=== PATIENT | female | born 1970 | race Caucasian/White ===

== ENCOUNTER → 2017-01-24 | Outpatient (REF) | payer BC ==
[2017-01-24 10:05] LABS: BASOPHILS % (AUTO) 1 % (0-2); EOSINOPHILS # (AUTO) 0.2 10^3uL; EOSINOPHILS % (AUTO) 3 % (0-4); LYMPHOCYTES # (AUTO) 1.7 X10^3; MEAN CORPUSCULAR HEMOGLOBIN 27.1 PG (26.0-34.0); MEAN CORPUSCULAR HGB CONC 33.3 g/dL (31.0-37.0); MEAN CORPUSCULAR VOLUME 81 FL (80-100); MEAN PLATELET VOLUME 10.7 FL (6.0-9.5); MONOCYTES # (AUTO) 0.6 X10^3; MONOCYTES % (AUTO) 10 % (3-11); NEUTROPHILS # (AUTO) 3.7 X10^3; NEUTROPHILS % (AUTO) 58 % (51-67); PLATELET COUNT 266 10^3uL (150-450); WHITE BLOOD COUNT 6.24 10^3uL (4.0-11.0)
[2017-01-24 10:06] LABS: BILIRUBIN,URINE Negative (Negative); CLARITY,URINE Clear; COLOR,URINE Yellow; GLUCOSE, URINE (UA) Negative (Negative); LEUKOCYTE ESTERASE, URINE Negative (Negative); UROBILINOGEN,URINE 0.2 mg/dL (0.2-1.0)
[2017-01-24 10:48] LABS: ALBUMIN 4.4 g/dL (3.4-5.0); ANION GAP 14.2 MEQ/L (3-15); CALCULATED IONIZED CALCIUM 3.9 mg/dL (3.8-4.6); TOTAL PROTEIN 7.7 g/dL (6.4-8.5)
== END ==
LOC: LAB 09:17
PROVIDERS: ATTEND Nurse Practitioner Family
DX: I10 Essential (primary) hypertension (principal); E78.2 Mixed hyperlipidemia; R53.83 Other fatigue; R35.0 Frequency of micturition
CPT/HCPCS: 80053; 80061; 81003; 84443; 85025

== ENCOUNTER 2017-02-22 11:44 | Emergency (ER) | payer BC ==
[~2017-02-22] VITALS: Ht 154.9 cm; Wt 67.0 kg
[2017-02-22] MEDS ORDERED: MECLIZINE 25 MG (ANTIVERT) TABLET PO STA (13:10)
[2017-02-22 13:54] LABS: BASOPHILS % (AUTO) 1 % (0-2); EOSINOPHILS # (AUTO) 0.3 10^3uL; EOSINOPHILS % (AUTO) 2 % (0-4); LYMPHOCYTES # (AUTO) 1.4 X10^3; MEAN CORPUSCULAR HEMOGLOBIN 26.8 PG (26.0-34.0); MEAN CORPUSCULAR HGB CONC 32.8 g/dL (31.0-37.0); MEAN CORPUSCULAR VOLUME 82 FL (80-100); MEAN PLATELET VOLUME 10.4 FL (6.0-9.5); MONOCYTES # (AUTO) 0.7 X10^3; MONOCYTES % (AUTO) 6 % (3-11); NEUTROPHILS # (AUTO) 8.1 X10^3; NEUTROPHILS % (AUTO) 77 % (51-67); PLATELET COUNT 290 10^3uL (150-450)
[2017-02-22 13:57] LABS: ALBUMIN 4.6 g/dL (3.4-5.0); ALKALINE PHOSPHATASE 89 U/L (38-126); BUN/CREATININE RATIO 25 (10-20); CALCULATED IONIZED CALCIUM 3.6 mg/dL (3.8-4.6); TOTAL PROTEIN 8.4 g/dL (6.4-8.5)
--- NOTE | 2017-02-22 14:54 | NUR ---
PT STATES SHE FEELS "LOTS BETTER" CL
[2017-02-22 18:53] VITALS: BP 147/79
== END 2017-02-22 14:59 | disposition home or self-care (01) ==
LOC: ED 11:45
DX: H81.10 Benign paroxysmal vertigo, unspecified ear (principal)
CPT/HCPCS: 36415; 71020; 80053; 84484; 85025; 93005; 93010; 99283; 99284